=== PATIENT | female | born 1955 | race Caucasian/White ===

== ENCOUNTER 2018-03-26 21:43 | Emergency (ER) | payer BC ==
[~2018-03-26] VITALS: Ht 160 cm; Wt 63.5 kg
[2018-03-26 21:47] VITALS: BP 103/54
== END 2018-03-26 22:20 | disposition home or self-care (01) ==
LOC: ER 21:45
DX: Z00.00 Encounter for general adult medical examination without abnormal findings (principal); F10.10 Alcohol abuse, uncomplicated; F17.210 Nicotine dependence, cigarettes, uncomplicated; I10 Essential (primary) hypertension; Z85.3 Personal history of malignant neoplasm of breast; Y90.9 Presence of alcohol in blood, level not specified
CPT/HCPCS: 99283; A4606; Z7610